=== PATIENT | female | born 1965 | race Caucasian/White ===

== ENCOUNTER → 2021-03-13 09:06 | Outpatient (CLI) | payer BC, SELFPAY ==
--- NOTE | ~2021-03-13 | CT_ITS ---
EXAMINATION: CT abdomen pelvis wo/w con DATE: 03/13/2021 09:58 INDICATION: Right flank pain. History of recent urinary tract infection. Gross hematuria. History of right renal and ureteral surgery 26 years ago TECHNIQUE: Computed tomography (CT) of the abdomen and pelvis was performed without and subsequently with 130 cc Omnipaque 350 intravenous contrast. Automated exposure control and iterative reconstructi on technique were employed. Exam dose: 1015.79 mGy-cm total exam DLP. COMPARISON: None. FINDINGS: There is minimal dependent bilateral lower lobe atelectasis. The lung bases are clear of in filtrate or consolidation. Normal heart size. No pericardial or pleural effusion. There is a 4 mm medial segment left hepatic cyst. No other hepatic space-occupying mass lesion is christine dent. Status post cholecystectomy. No bile duct or pancreatic duct dilatation. No pancreatic mass lesion or calcification. Normal splenic size. Normal morphology of the adrenal glands. No renal mass lesion or scarring is evident. There is bilateral prominence of the extrarenal pelves a s well as moderate prominence of the ureters, especially the proximal right ureter. However, no urina ry tract obstruction is evident The urinary bladder is unremarkable. Uterus and adnexal areas are unremarkable. There is a prominent of fecal material within the colon. No bowel obstruction, bowel wall thickening, pneumatosis or intraperitoneal free air. No suspicious osteolytic or osteoblastic lesions. IMPRESSION: Bilateral renal pelviectasis and moderate prominence of the ureters, without evidence of urinary tract calculus or obstruction 4 mm medial segment left hepatic cyst Status post cholecystectomy Reviewed, dictated and finalized at [facility]. Reviewed, dictated and finalized at location A. IMPRESSION: Bilateral renal pelviectasis and moderate prominence of the ureter s, without evidence of urinary tract calculus or obstruction 4 mm medial segment left hepatic cyst Status post cholecystectomy
[2021-03-13 09:35] LABS: Estimated Glomerular Filt Rate > 60
== END ==
DX: N39.0 Urinary tract infection, site not specified (principal); Z90.49 Acquired absence of other specified parts of digestive tract; K76.89 Other specified diseases of liver
CPT/HCPCS: 74178; Q9967

== ENCOUNTER → 2021-05-11 09:16 | Outpatient (CLI) | payer BC, SELFPAY ==
--- NOTE | ~2021-05-11 | US_ITS ---
US right upper quadrant INDICATION: Hepatic cyst PROCEDURE: Realtime right upper abdominal ultrasound. COMPARISON: No prior studies for comparison. FINDINGS: The pancreas is normal without focal mass or pancreatic ductal dilation. Liver echotexture is normal without focal mass or intrahepatic biliary dilatation. There is a 4 mm liver cyst. There i s normal directional flow in the portal vein. The gallbladder is normal without stones, gallbladder wall thickening or pericholecystic fluid. Comm on bile duct measures 3 mm. No sonographic Fitzpatrick's sign. IMPRESSION: 1: Unremarkable limited abdominal ultrasound. Reviewed, dictated and finalized at location A.
== END ==
PROVIDERS: PCP Internal Medicine
DX: K76.89 Other specified diseases of liver (principal)
CPT/HCPCS: 76705

== ENCOUNTER → 2021-07-13 11:11 | Outpatient (CLI) | payer BC, SELFPAY ==
--- NOTE | ~2021-07-13 | MM_ITS ---
EXAMINATION: MM screening [facility] BI w nevin HISTORY: Screening mammogram TECHNIQUE: Craniocaudal and mediolateral oblique 3-D tomosynthesis images were obtained and synthetic 2-D images were generated. CAD analysis was submitted and interpreted. COMPARISON: 07/09/2018, 06/01/2014 BREAST PARENCHYMAL COMPOSITION: There are scattered areas of fibroglandular density. FINDINGS: There is no evidence of suspicious mass, calcification, or architectural distortion to sugg est malignancy in either breast. There has been no suspicious interval change. IMPRESSION: 1. No mammographic evidence of malignancy. 2. Recommend routine screening mammography in one year. BI-RADS Category 1: Negative Reviewed, dictated and finalized at location A.
== END ==
PROVIDERS: PCP Internal Medicine; Visit Provider Obstetrics & Gynecology
DX: Z12.31 Encounter for screening mammogram for malignant neoplasm of breast (principal)
CPT/HCPCS: 77063; 77067

== ENCOUNTER → 2021-09-04 17:48 | Outpatient (CLI) | payer BC, SELFPAY ==
--- NOTE | ~2021-09-04 | DEXA_ITS ---
Bone Density Report Name: Elizabeth Cutler Age: 55 Sex: Female Ethnicity: White Date of : 1965 Indication: postmenopausal; screening for osteoporosis; parental hip fracture; Referring Provider: CHRISTIANE KABA Study: Bone densitometry was performed. Exam Date: September 04, 2021 Accession number: [id number] Bone Density: Region BMD T-score Z-score Classification AP Spine (L1-L4) 0.894 -1.4 -0.3 Osteopenia Femoral Neck (Left) 0.655 -1.8 -0.7 Osteopenia Total Hip (Left) 0.749 -1.6 -0.9 Osteopenia Femoral Neck (Right) 0.644 -1.8 -0.7 Osteopenia Total Hip (Right) 0.776 -1.4 -0.6 Osteopenia Total Hip Mean 0.763 -1.5 -0.8 Osteopenia World Health Organization criteria for BMD impression classify patients as: Normal (T-score at or above -1.0), Osteopenia (T-score between -1.0 and -2.5), or Osteoporosis (T-score at or below -2.5). 10-year Fracture Risk(1): Major Osteoporotic Fracture 14% Hip Fracture 0.8% Reported Risk Factors: [place] (), Neck BMD=0.644, BMI=21.9, parental fracture (1) FRAX(R) Version 3.08. Fracture probability calculated for an untreated patient. Fracture probability may be lower if the patient has received treatment. Clinical Information Provided by Patient: Parent has had a hip fracture Has used the following medications: Vitamin D, Calcium Patient maximum height was 67.5 Menopause Age: 52 Drinks caffeinated beverages Onset of menses at age 13 Number of children 4 Impression: The patient has low bone mass, based on the Left Femoral Neck T-score. The patient has an estimated ten-year risk of hip fracture of 0.8% and an estimated ten-year risk of major fracture of 14%, based on the WHO FRAX algorithm. The patient has risk factors, including: parental hip fracture. Discussion: BONE DENSITY IS LOW AT ONE OR MORE SKELETAL SITES. This patient's lowest T-score is low at one or more skeletal sites. It meets the World Health Organization's (WHO) criteria for ?low bone mass? (T-score between -1.0 and -2.5). The patient's 10-year risk of fracture as calculated by FRAX is less than the threshold where pharmacological therapy is recommended by the National Osteoporosis Foundation (NOF). However, all treatment decisions require clinical judgment and consideration of individual patient factors, including patient preferences, comorbidities, previous drug use, risk factors not captured in the FRAX model (e.g., frailty, falls, vitamin D deficiency, increased bone turnover, interval significant decline in bone density) and possible under or overestimation of fracture risk by FRAX. The patient should follow a healthful lifestyle (good nutrition with adequate calcium and vitamin D, and appropriate weight-bearing exercise). Follow-Up: Consider repeating this study in 2 to 3 years to reasses
== END ==
PROVIDERS: PCP Internal Medicine; Visit Provider Obstetrics & Gynecology
DX: Z13.820 Encounter for screening for osteoporosis (principal); Z78.0 Asymptomatic menopausal state; M85.88 Other specified disorders of bone density and structure, other site; M85.851 Other specified disorders of bone density and structure, right thigh; M85.852 Other specified disorders of bone density and structure, left thigh
CPT/HCPCS: 77080

== ENCOUNTER → 2022-03-12 11:52 | Outpatient (CLI) | payer BC, SELFPAY ==
--- NOTE | ~2022-03-12 | XR_ITS ---
EXAMINATION: XR ankle LT min 3V EXAM DATE: 03/12/2022 12:25 INDICATION: Left ankle pain. Pt rolled left ankle and went down on it on Saturday03-10-2022. Swelling and bruising laterally and on dorsal side of left foot. TECHNIQUE: Left ankle frontal, lateral and oblique projections obtained and reviewed. There is no pr ior study for comparison. FINDINGS: The left ankle mortise appears intact. There are no acute fractures or dislocations ident ified. There is no subcutaneous gas. There is soft tissue swelling over the ankle anterolaterally. There are no radiopaque foreign bodies. IMPRESSION: 1. Left ankle exam without acute osseous findings. 2. Soft tissue swelling. Reviewed, dictated and finalized at location A.
== END ==
PROVIDERS: PCP Internal Medicine
DX: M25.572 Pain in left ankle and joints of left foot (principal); M79.89 Other specified soft tissue disorders
CPT/HCPCS: 73610

== ENCOUNTER → 2022-09-03 07:05 | Outpatient (CLI) | payer BC, SELFPAY ==
--- NOTE | ~2022-09-03 | MR_ITS ---
EXAMINATION: MR shoulder RT wo con DATE: 09/03/2022 07:43 INDICATION: Right rotator cuff injury with lateral sided right shoulder pain and limited range of mot ion TECHNIQUE: Magnetic resonance imaging (MRI) of the right shoulder was performed without intravenous c ontrast. Sequences included axial PD-weighted FS FSE, coronal oblique PD-weighted FS FSE, coronal obl ique T2-weighted FS FSE, sagittal PD-weighted FS FSE, and sagittal T1-weighted SE. COMPARISON: None. FINDINGS: Coracoacromial arch: The acromion undersurface is flat in morphology (type I). The coracoacromial ligament is normal. Mild acromioclavicular osteoarthritis. Rotator cuff: Mild supraspinatus tendinopathy without discrete tear. The infraspinatus and teres minor tendons are normal. Subscapularis tendon is normal. Normal rotator cuff muscle bulk and signal. Biceps tendon, glenoid labrum and glenohumeral cartilage: Long head of the biceps tendon is normal. Glenoid labrum is normal. Glenohumeral cartilage is normal. Fluid: Physiologic amount of fluid in the glenohumeral joint and biceps tendon sheath. No loose osteochondr al bodies. Small amount of fluid in the subacromial/subdeltoid bursa consistent with mild bursitis. Bones: Normal marrow signal with no edema, fracture or abnormal marrow replacing process. IMPRESSION: 1. Mild supraspinatus tendinopathy without discrete tear. 2. Mild subacromial/subdeltoid bursitis. 2. Mild acromioclavicular osteoarthritis. Reviewed, dictated and finalized at location B.
== END ==
PROVIDERS: PCP Internal Medicine; Visit Provider Internal Medicine
DX: M19.011 Primary osteoarthritis, right shoulder (principal); M75.51 Bursitis of right shoulder
CPT/HCPCS: 73221

== ENCOUNTER → 2022-10-01 07:29 | Outpatient (CLI) | payer BC, SELFPAY ==
--- NOTE | ~2022-10-01 | XR_ITS ---
EXAMINATION: XR knee RT 3V DATE: 10/01/2022 07:42 INDICATION: Right knee pain TECHNIQUE: Three views of the right knee were obtained. COMPARISON: None. FINDINGS: Alignment is normal. No fracture or osteochondral lesion. There is mild tricompartmental os teoarthritis characterized by tiny marginal osteophytes. No joint effusion/synovitis. Soft tissues a re unremarkable. IMPRESSION: 1. No acute osseous abnormality. Reviewed, dictated and finalized at location B. NT PARTNER
--- NOTE | ~2022-10-01 | XR_ITS ---
EXAMINATION: XR foot LT 2V INDICATION: Left foot pain TECHNIQUE: Two views of the left foot are obtained. COMPARISON: 03/09/2007 FINDINGS: There is moderate osteoarthritis of multiple interphalangeal joints. Mild osteoarthritis is noted at the first metatarsophalangeal joint. Mild osteoarthritis is also noted in the midfoot. Ther e is a posterior calcaneal enthesophyte. IMPRESSION: 1. Polyarticular osteoarthritis without acute osseous abnormality. Reviewed, dictated and finalized at location B. MILL SUPERVISOR
== END ==
PROVIDERS: PCP Internal Medicine; Visit Provider Internal Medicine
DX: M25.50 Pain in unspecified joint (principal); M19.072 Primary osteoarthritis, left ankle and foot
CPT/HCPCS: 73562; 73620

== ENCOUNTER → 2023-02-13 15:10 | Outpatient (CLI) | payer BC, SELFPAY ==
--- NOTE | ~2023-02-13 | CT_ITS ---
EXAMINATION: CT abdomen pelvis w con DATE: 02/13/2023 15:36 INDICATION: Right lower quadrant abdominal pain TECHNIQUE: Computed tomography (CT) of the abdomen and pelvis was performed with 100 mL Omnipaque-350 intravenous contrast. Automated exposure control and iterative reconstruction technique were employe d. The dose-length product was 536.44 mGy-cm. COMPARISON: 03/13/2021 FINDINGS: Minimal dependent atelectasis in the bilateral lower lobes. Heart size is normal. No pericardial or p leural effusion. Cholecystectomy clips in the gallbladder fossa. Unchanged subcentimeter low-attenuat ion cyst in the left hepatic lobe. Spleen, pancreas, bilateral adrenal glands and kidneys are normal. Surgical clips along the anterior margin of the right psoas muscle. There is eccentric enhancing sof t tissue along one side of cord appears be a blind-ending small tubular fluid-filled structure which extends towards the cecum with additional enhancing soft tissue at what appears to the ileocecal valv e. Findings are concerning for malignancy along the appendix and appendiceal mucocele. There is no polanco rrounding inflammatory stranding to suggest acute appendicitis. The anteverted, retroflexed uterus an d bilateral adnexa are unremarkable. Bladder is normal. No free intraperitoneal gas or fluid. No path ologically enlarged abdominal or pelvic lymphadenopathy. Minimal to mild scattered degenerative skele javier changes in the pelvis and spine. IMPRESSION: 1. Asymmetric thickened peripheral enhancing soft tissue along the small blind-ending fluid-filled tu bular structure which extends to the tip the cecum most likely the appendix. There is no surrounding from trace stranding to suggest acute appendicitis of the wall thickening raises concern for malignan cy. Less likely differential for the structure would include a loop of small bowel or hydrosalpinx. Reviewed, dictated and finalized at location A. IMPRESSION: 1. Asymmetric thickened peripheral enhancing soft tissue along the small blind- ending fluid-filled tubular structure which extends to the tip the cecum most l ikely the appendix. There is no surrounding from trace stranding to suggest acu te appendicitis of the wall thickening raises concern for malignancy. Less like ly differential for the structure would include a loop of small bowel or hydros alpinx.
== END ==
PROVIDERS: PCP Internal Medicine; Visit Provider Internal Medicine
DX: R10.31 Right lower quadrant pain (principal)
CPT/HCPCS: 74177; Q9967

== ENCOUNTER 2023-02-22 12:15 | Outpatient (CLI) | payer BC, SELFPAY ==
--- NOTE | 2023-02-22 14:47 | ECG_ITS ---
Measurements Intervals [place] Rate: 74 P: 62 CA: 176 QRS: 64 QRSD: 89 T: 68 QT: 376 QTc: 419 Interpretive Statements SINUS RHYTHM BASELINE ARTIFACT- I, II, III, AVR, AVL, AVF NORMAL ECG NO PREVIOUS ECG AVAILABLE FOR COMPARISON Electronically Signed On 02-22-2023 15:22:12 CDT by David Gresham D.O.
[2023-02-22 15:18] LABS: Hematocrit 36.8 % (37.0-47.0)
[2023-02-22 16:06] LABS: Carcinoembryonic Antigen 0.6 ng/mL (0.0-3.0)
== END 2023-02-22 12:16 | disposition home or self-care (01) ==
PROVIDERS: Anesthesiology; PCP Internal Medicine; Visit Provider Surgery
DX: K63.89 Other specified diseases of intestine (principal); Z01.818 Encounter for other preprocedural examination
CPT/HCPCS: 36415; 82378; 85014; 85018; 86850; 86900; 86901; 93005

== ENCOUNTER 2023-02-25 12:01 | Inpatient (IN) | payer BC, SELFPAY ==
[2023-02-22 14:08] VITALS: BP 102/69; PULSE 82; RESP 16; TEMP 37.3; O2SAT 98; BMI 23.7
--- NOTE | 2023-02-22 14:22 | PC.NURSE ---
Report to the Outpatient Waiting Room, entrance under the green pavilion located off [facility], at time __6:00AM on date __02/25/23 . Planned Procedure Time: __7:30AM . Time changes happen often and if your time is changed the preop area will call you the afternoon before. - You and your visitor will be asked to self-screen and do not enter if you have any COVID symptoms. - Only one visitor is requested with a max of two and NO children visitors are allowed at this time. - The patient visitor may be requested to leave or wait in car when not with patient due to distancing restrictions. - A mask is optional within the hospital at this time. Patients may have clear liquids (water, carbonated beverages, clear teas, apple juice) until 3 hours prior to surgery with a maximum of 20 ounces. BOWEL PREP PER DR MARQUEZ ANTIOBIOTICS DAY BEFORE SURGERY ORDERED HIBICLENS SHOWER DAY BEFORE SURGERY AND MORNING OF SURGERY Take the following medications with a SIP of water the morning of surgery: ____PAROXETINE DO NOT STOP ANY OF YOUR OTHER PRESCRIPTION MEDICATIONS PRIOR TO SURGERY ?EXCEPT THE FOLLOWING Medications to discontinue per physician ____NONE Date to take last dose Please no make-up, nail [place] citizen, hairspray, perfume, deodorant, or body powder the day of surgery. No jewelry (including any body piercings) or valuables the day of surgery, leave them at home. Please take a shower or bath the night before, or the morning of, surgery with an antibacterial soap. Wear comfortable, loose fitting clothing. Children are encouraged to wear pajamas. - Jewelry must be removed prior to entering the operating room. Rings and piercings that are not removed may be cut off. - The hospital will not accept responsibility for valuables. - Please leave all valuables, including medications, at home the day of surgery. If you are going home after surgery, a licensed hole digger truck driver must drive you home. - NO public transportation without another adult if you receive anesthesia. - We recommend that an adult stay with you for 24 hours following discharge. - We also recommend that you do not drive, make important decision, drink alcoholic beverages, or take any drugs that were not prescribed by your health care provider for at least 24 hours after your discharge time. Follow any additional instructions given to you from your surgeon. If you or anyone in your household have experienced Covid symptoms in the past week, please notify your surgeon or the nurse liaison at the phone number below for possible testing. Telephone instructions given to __PATIENT and asked if any additional questions and then verbalized understanding. Patient advised to call surgeon office or pre surgery nurse liaison [phone] if any additional questions.
[2023-02-25] VITALS (12 sets, daily range): BP systolic 104–126; BP diastolic 55–82; PULSE 74–90; RESP 10–21; TEMP 36.3–37.1; O2SAT 96–100
[2023-02-25] MEDS: SCOPOLAMINE 1.5 MG PATCH TRANSDERM (06:30)
[2023-02-25] MEDS: LACTATED RINGERS 1,000 ML 30 ML IV CONT ×2 (06:30→11:06)
[2023-02-25] MEDS: ACETAMINOPHEN 500 MG TABLET 1000 MG PO ×4 (06:40→23:06)
[2023-02-25] MEDS: KETOROLAC 15 MG/ML VIAL (*BKC) IV PUSH (06:41)
--- NOTE | 2023-02-25 07:03 | WPDHPUPDATE1 ---
History and Physical Update Update Date/Time: 02/25/23 07:03 History and Physical has been reviewed, including an updated exam of the patient. There are NO changes in the patient's condition. Risks, benefits, and alternatives have been discussed and questions answered. Patient agrees to proceed with procedure.
--- NOTE | 2023-02-25 07:11 | WPDANESEPPF ---
Anes - Initial Pre Proc Eval Procedure: Operation Date: 02/25/23 07:30 Proposed Procedures p Laparoscopic Assisted Right Hemicolectomy, Da Brooklynn Assisted - Oliver Hernandez DO Date/Time: 02/25/23 07:11 Surgeon: Oliver Hernandez DO Pre Op Diagnosis: cecal mass Patient Data Age: 57 Gender: F Height: 1.7 m Weight: 68.7 kg Last Vital Signs Temp 99.2 F 02/22/23 14:08 Pulse 82 02/22/23 14:08 Resp 16 02/22/23 14:08 BP 102/69 02/22/23 14:08 Pulse Ox 98 02/22/23 14:08 O2 Del Method Room Air 02/22/23 14:08 Allergies Allergy/AdvReac Type Severity Reaction Status Date / Time No Known Allergies Allergy Verified 02/25/23 07:05 Home Medications Medication Instructions Recorded Confirmed Type paroxetine HCl 10 mg tablet 10 mg PO QAM 09/20/22 02/25/23 History ciprofloxacin HCl 500 mg tablet 500 mg PO ONCE #1 tablet 02/21/23 02/25/23 Rx metronidazole 500 mg tablet See Rx Instructions .Route 02/21/23 02/25/23 Rx .COMPLEX #3 tabs fexofenadine 180 mg tablet 180 mg PO DAILY 02/22/23 02/25/23 History (Allergy Relief (fexofenadine)) Patient hx anesthesia problems: post op nausea/vomiting Family hx anesthesia problems: none Results Review: All pre-operative results and documents have been reviewed as part of the pre-operative evaluation. PMFSH Past Medical History Medical History Anxiety History of vaginal delivery x 3 Surgical History Surgical History History of delivery ax 1 History of cholecystectomy History of kidney surgery History of tonsillectomy and adenoidectomy Hx of laparoscopy [place] teeth removed Family History Family History Father Carcinoma of colon Skin cancer Mother Cerebrovascular accident Other Family history of arthritis Social History Social History Smoking status: Never smoker Second hand tobacco smoke exposure: No Alcohol intake: current Drinks per week: 2 Substance use: never Living arrangements: with family Additional living arrangements comments: [facility] Occupation/Education: occupation Additional occupation/education comments: Speech Pathologist Spiritual care concerns: No Anes - Eval Final PreProcedure Day of Procedure 02/25/23 07:11 Patient weight: normal Heart: regular rate and rhythm Lungs: clear to auscultation Airway: Mallampati scale class II Neurological: alert and oriented Last oral intake: >/= 8 hours ASA classification: III Emergent: no Anesthetic plan: proceed Anesthesia type and monitoring: general GIVS and standard monitoring Results Review: All pre-operative results and documents have been reviewed as part of the pre-operative evaluation. Informed Consent: The patient's anesthetic plan and its attendant risks and benefits were discussed with the patient/family/POA. Questions were solicited and answers provided to the satisfaction of the patient/family/POA.
[2023-02-25] MEDS: ceFAZolin 2 GM/D5W 50 ML 2 GM/50 ML BAG IVPB (07:29)
[2023-02-25] MEDS: metroNIDAZOLE 500 MG/ISO 100ML 500 MG/100 ML BAG 100 MG IVPB (07:45)
[2023-02-25] MEDS: INDOCYANINE GREEN 25 MG VIAL WITH DILUENT 7.5 MG IV PUSH (09:46)
--- NOTE | 2023-02-25 11:08 | W.PM.PROC2 ---
Procedure Note - Detailed Date of Procedure 02/25/23 Pre-op Diagnosis cecal mass Post-op Diagnosis Other (appendiceal mass) Procedure Performed Laparoscopic right hemicolectomy with ileocolic anastomosis, da Brooklynn assisted Surgeon Oliver Hernandez, DO Anesthesia General and Local (Exparel) Indications This is a 57-year-old woman who presented with right lower quadrant pain that started about 4 months ago. She underwent CT of her abdomen and pelvis on 02/13/2023 which showed evidence of a mass at the cecum or appendix. She then underwent colonoscopy on 02/18/[address] Carrero and this showed evidence of a polypoid mass near the appendiceal orifice. Biopsies showed evidence of mucinous adenocarcinoma. Her preoperative CEA level was 0.6 and there was no other sign of metastatic spread on the CT. Discussions were made with the patient about treatment options and decision was made to proceed with robotic assisted laparoscopic right hemicolectomy. Findings Robotic assisted laparoscopic right hemicolectomy was performed. The mass was identified at the appendix and cecum. It appeared likely to be arising from the appendix and extending to the cecum. There also appeared to be multiple small white peritoneal implants along the mesentery of the small bowel. The mesoappendix also appeared to be somewhat tethered to the right salpinx. There did not appear to be any gross invasion into the ovary or uterus. There were a few small white areas on the peritoneum in the pelvis near the uterus. One of these was excised and sent for frozen section which was inconclusive for any sign of metastases. No other sign of metastatic spread was identified. I did choose to extend the excision along the terminal ileum to allow for excision of the small implants on the mesentery of the terminal ileum. ICG was used to confirm adequate perfusion to the proximal and distal margins. An isoperistaltic [id number]-[id number] anastomosis was performed using a 60 mm stapler. The common enterotomy was then closed with a double layer of 3-0 V lock running absorbable suture. Description of Procedure Procedure as well as risks, benefits, and alternatives were discussed with the patient.? Written consent was obtained and placed in chart prior to procedure.? Patient was brought back to surgical suite.? She was placed supine on operating table.? Time-out was done to confirm patient and procedure.? She was then intubated by the anesthesia department.? Her abdomen was prepped and draped in sterile fashion using chlorhexidine prep.? An 8 mm incision was made in the left upper quadrant and a 5 mm Optiview trocar was advanced through the abdominal layers under direct visualization.? Once inside the abdominal cavity, carbon dioxide insufflation was used to create a pneumoperitoneum.? Camera was inserted in the abdomen was inspected.? The patient was placed in 5 degree Trendelenburg and 10? rotated left an 8 mm incision was made in the suprapubic region in midline and an 8 mm trocar was inserted under direct visualization another 8 mm incision was made in the umbilical region just inferior into the left of the umbilicus and an 8 mm trocar was inserted under direct visualization.? A 12 mm incision was made in the left lateral abdomen and a 12 mm trocar was inserted under direct visualization.? An 8 mm incision was made in the left lower quadrant and an 8 mm assist port was placed under direct visualization.? The 5 mm port was then removed and exchanged for an 8 mm port.? The robotic arms were then brought up to the patient's bedside and secured to the ports.? The camera and instruments were then inserted.? I then moved over to the robotic console and took control of the camera and instruments.? Thorough inspection was made around the abdominal cavity.? The omentum was then reflected cephalad over the transverse colon.? The area near the ileocecal valve was grasped and retracted anterior and laterally to tent up the ileocol
--- NOTE | 2023-02-25 12:14 | ADMGEN ---
This patient, Elizabeth Cutler, was admitted to 2 Medical Room 260-01. Patient/family oriented to hospital policies and general routines including ID bracelet, bed and alarms, visiting hours, pain management, procedures, bathroom and other care routines, personal items, smoking policy, room service/diet, and visiting hours. Information on how to activate the Rapid Response Team has been discussed. Patient/Family are encouraged to report perceived risks to care and to ask questions if they do not understand what they are told or what they should do.
[2023-02-25] MEDS: LACTATED RINGERS 1,000 ML 100 ML IV CONT ×2 (12:34→23:06)
[2023-02-25] MEDS: oxyCODONE HCL (*CRX) 2.5 MG TAB IR PO ×3 (12:34→23:07)
[2023-02-25] MEDS: ONDANSETRON INJ 4 MG/2 ML VIAL IV PUSH ×2 (12:39→19:08)
[2023-02-25] MEDS: ceFAZolin 1 GM/NS 50 ML 1 GM/50 ML BAG IVPB ×2 (15:23→23:06)
[2023-02-26 01:16] VITALS: BP 108/66; PULSE 83; RESP 20; TEMP 36.9; O2SAT 98
[2023-02-26] MEDS: ONDANSETRON INJ 4 MG/2 ML VIAL IV PUSH ×2 (02:05→16:54)
[2023-02-26] MEDS: MORPHINE SULFATE (*CRX) 4 MG/ML INJ IV PUSH (02:05)
[2023-02-26 05:37] VITALS: BP 100/61; PULSE 82; RESP 18; TEMP 37.1; O2SAT 97
[2023-02-26 05:49] LABS: Basophils Percent Auto 0.6 % (0.2-1.2); Eosinophils Percent Auto 0.1 % (0-4.4); Hematocrit 29.6 % (37.0-47.0); Hemoglobin 9.6 g/dL (12.0-15.0); Immature Granulocyte Absolute 0.02 K/mm3 (0.00-0.031); Immature Granulocyte Percent A 0.3 % (0-0.5); Lymphocytes Absolute Auto 1.07 K/mm3 (0.9-3.2); Lymphocytes Percent Auto 15.1 % (18.3-44.2); Mean Corpuscular HGB Conc 32.4 g/dl (32-36); Mean Corpuscular Hemoglobin 32.1 pg (26-34); Mean Platelet Volume 8.6 fl (7.4-10.4); Monocytes Absolute Auto 0.5 K/mm3 (0.1-0.6); Monocytes Percent Auto 6.9 % (2.6-8.5); Neutrophils Absolute Auto 5.5 K/mm3 (1.3-6.7); Platelet Count Result 220 k/mm3 (150-375); Red Blood Count 2.99 M/mm3 (4.2-5.4); Red Cell Distribution Width 13.2 % (11.5-14.5); White Blood Count 7.1 K/mm3 (4.5-10.0)
[2023-02-26 06:01] LABS: Anion Gap 3 mmol/L (8-16); Blood Urea Nitrogen 6 mg/dL (7-17); Calcium 8.4 mg/dL (8.4-10.2); Carbon Dioxide 34 mmol/L (22-30); Chloride 102 mmol/L (98-107); Estimated CRCL calculation 85 ml/min; Estimated Glomerular Filt Rate > 60; Glucose 112 mg/dL (65-110); Potassium 4.5 mmol/L (3.4-5.0); Sodium 139 mmol/L (137-145)
[2023-02-26] MEDS: ACETAMINOPHEN 500 MG TABLET 1000 MG PO ×4 (06:26→23:30)
[2023-02-26] MEDS: oxyCODONE HCL (*CRX) 2.5 MG TAB IR PO ×2 (09:04→16:54)
[2023-02-26] MEDS: LACTATED RINGERS 1,000 ML 100 ML IV CONT (09:05)
[2023-02-26] MEDS: ENOXAPARIN 40 MG/0.4 ML SYRINGE SUB-Q (09:06)
[2023-02-26] MEDS: PARoxetine 10 MG TABLET PO (09:06)
[2023-02-26 10:00] VITALS: BP 104/59; PULSE 91; RESP 16; TEMP 36.4; O2SAT 100
--- NOTE | 2023-02-26 10:52 | WPDANESPN ---
Anes - Prog Note Post-Op Date/Time: 02/26/23 10:52 Vital Signs: Last Vital Signs Temp 36.4 C 02/26/23 10:00 Pulse 91 02/26/23 10:00 Resp 16 02/26/23 10:00 BP 104/59 L 02/26/23 10:00 Pulse Ox 100 02/26/23 10:00 O2 Del Method Room Air 02/26/23 08:00 O2 Flow Rate 7 02/25/23 11:23 Pain Score (VAS): 3 I/O: Intake & Output 02/25/23 02/26/23 02/26/23 23:59 07:59 15:59 Intake Total 1530 1240 Output Total 640 1100 Balance 890 -1100 1240 Laboratory Tests 02/26/23 05:33 02/26/23 05:33 02/26/23 02/26/23 05:33 05:33 WBC 7.1 RBC 2.99 L Hgb 9.6 L Hct 29.6 L MCV 99.0 MCH 32.1 MCHC 32.4 RDW 13.2 Plt Count 220 MPV 8.6 Immature Gran % (Auto) 0.3 Neut % (Auto) 77.0 H Lymph % (Auto) 15.1 L [place] % (Auto) 6.9 Eos % (Auto) 0.1 Baso % (Auto) 0.6 Lymph # (Auto) 1.07 [place] # (Auto) 0.5 Eos # (Auto) 0.0 Baso # (Auto) 0.0 Abs Immat Gran (auto) 0.02 Absolute Neuts (auto) 5.5 Absolute Nucleated RBC 0.0 Nucleated RBC % 0.0 Sodium 139 Potassium 4.5 Chloride 102 Carbon Dioxide 34 H Anion Gap 3 L BUN 6 L Creatinine 0.60 L Estim Creat Clear Calc 85 Estimated GFR > 60 Glucose 112 H Calcium 8.4 Patient Feedback: Patient satisfied with anesthetic care.
--- NOTE | 2023-02-26 11:42 | PM.PNGS ---
Progress Note: A&P Assessment and Plan (1) Cecum mass: Code(s): K63.89 - Other specified diseases of intestine Status: Acute Assessment and Plan: Increase activity, advance diet as tolerated Will stop IV fluids today Voiding trial tomorrow Final pathology pending (2) Postoperative urinary retention: Code(s): N99.89 - Other postprocedural complications and disorders of genitourinary system; R33.8 - Other retention of urine Status: Acute Subjective Subjective Date/Time Seen: 02/26/23 11:42 Interval history: bowels moving. pain controlled. had urinary retention postop and Stevens placed this AM. Exam GI: Inspection: normal to inspection, non-distended and incision (intact with glue) GI Palp: Yes Soft to palpation and Yes Tenderness to palpation present (GI) (incisional) Auscultation: normal bowel sounds Objective Data Vital Signs Vital Signs: Vital Signs - 24 hr 02/25/23 11:50 02/25/23 12:00 02/25/23 12:01 Temperature 36.4 C 36.4 C L Pulse Rate 85 78 74 Respiratory Rate 14 14 16 Blood Pressure 113/69 113/71 118/61 Pulse Oximetry 100 99 97 Oxygen Delivery Room Air Room Air 02/25/23 12:16 02/25/23 12:46 02/25/23 13:46 Temperature 36.4 C L 36.4 C L 37.1 C Pulse Rate 76 88 89 Respiratory Rate 14 16 16 Blood Pressure 126/69 109/60 117/68 Pulse Oximetry 99 96 97 Oxygen Delivery 02/25/23 19:22 02/25/23 21:46 02/26/23 01:16 Temperature 36.3 C L 36.6 C 36.9 C Pulse Rate 87 78 83 Respiratory Rate 16 21 H 20 Blood Pressure 109/55 L 104/62 108/66 Pulse Oximetry 97 100 98 Oxygen Delivery 02/26/23 05:37 02/26/23 08:00 02/26/23 10:00 Temperature 37.1 C 36.4 C Pulse Rate 82 91 Respiratory Rate 18 16 Blood Pressure 100/61 104/59 L Pulse Oximetry 97 100 Oxygen Delivery Room Air Intake/Output Intake/Output: Intake & Output 02/23/23 02/24/23 02/25/23 02/26/23 23:59 23:59 23:59 23:59 Intake Total 1980 1240 Output Total 1340 1100 Balance 640 140 Meds/Results Medications: Active Medications Generic Name Dose Route Start Last Admin Trade Name Freq PRN Reason Stop Dose Admin Acetaminophen 1,000 mg 02/25/23 12:00 02/26/23 06:26 Acetaminophen 500 Mg Tablet PO 1,000 mg Q6HR HERIBERTO Administration Enoxaparin Sodium 40 mg 02/26/23 09:00 02/26/23 09:06 Enoxaparin 40 Mg/0.4 Ml Syringe SUB-Q 40 mg DAILY HERIBERTO Administration Morphine Sulfate 2 mg 02/25/23 12:01 Morphine Sulfate (*Crx) 2 Mg/Ml Inj IV PUSH Q2H PRN Pain Rated 4-6 Morphine Sulfate 4 mg 02/25/23 12:01 02/26/23 02:05 Morphine Sulfate (*Crx) 4 Mg/Ml Inj IV PUSH 4 mg Q2H PRN Administration Pain Rated 7-10 Ondansetron HCl 4 mg 02/25/23 12:01 02/26/23 02:05 Ondansetron Inj 4 Mg/2 Ml Vial IV PUSH 4 mg Q4H PRN Administration Nausea And Vomiting Oxycodone HCl 2.5 mg 02/25/23 12:01 02/26/23 09:04 Oxycodone Hcl (*Crx) 2.5 Mg Tab Ir PO 2.5 mg Q4H PRN Administration Pain Rated 4-6 Oxycodone HCl 5 mg 02/25/23 12:01 Oxycodone Hcl (*Crx) 5 Mg Tab Ir PO Q4H PRN Pain Rated 7-10 Paroxetine HCl 10 mg 02/26/23 09:00 02/26/23 09:06 Paroxetine 10 Mg Tablet PO 10 mg QAM HERIBERTO Administration Labs Labs: Laboratory Results - last 24 hr 02/26/23 02/26/23 05:33 05:33 WBC 7.1 RBC 2.99 L Hgb 9.6 L Hct 29.6 L MCV 99.0 MCH 32.1 MCHC 32.4 RDW 13.2 Plt Count 220 MPV 8.6 Immature Gran % (Auto) 0.3 Neut % (Auto) 77.0 H Lymph % (Auto) 15.1 L [place] % (Auto) 6.9 Eos % (Auto) 0.1 Baso % (Auto) 0.6 Lymph # (Auto) 1.07 [place] # (Auto) 0.5 Eos # (Auto) 0.0 Baso # (Auto) 0.0 Abs Immat Gran (auto) 0.02 Absolute Neuts (auto) 5.5 Absolute Nucleated RBC 0.0 Nucleated RBC % 0.0 Sodium 139 Potassium 4.5 Chloride 102 Carbon Dioxide 34 H Anion Gap 3 L BUN 6 L Creatinine 0.60 L Estim Creat Clear Calc 85 Estimated GFR > 60 Gluc
[2023-02-26 14:25] VITALS: BP 113/65; PULSE 81; RESP 18; TEMP 36.9; O2SAT 98
[2023-02-26 18:00] VITALS: BP 116/77; PULSE 81; RESP 18; TEMP 36.7; O2SAT 98
[2023-02-26 22:20] VITALS: BP 123/78; PULSE 79; RESP 20; TEMP 36.8; O2SAT 99
[2023-02-27 02:30] VITALS: BP 124/77; PULSE 80; RESP 20; TEMP 37.1; O2SAT 98
[2023-02-27] MEDS: oxyCODONE HCL (*CRX) 2.5 MG TAB IR PO (04:25)
[2023-02-27] MEDS: ONDANSETRON INJ 4 MG/2 ML VIAL IV PUSH (04:25)
[2023-02-27] MEDS: ACETAMINOPHEN 500 MG TABLET 1000 MG PO ×4 (05:45→23:31)
[2023-02-27 06:00] VITALS: BP 128/75; PULSE 86; RESP 18; TEMP 37.1; O2SAT 96
[2023-02-27 06:06] LABS: Hematocrit 28.3 % (37.0-47.0); Hemoglobin 9.1 g/dL (12.0-15.0); Mean Corpuscular HGB Conc 32.2 g/dl (32-36); Mean Corpuscular Hemoglobin 32.6 pg (26-34); Mean Corpuscular Volume 101.4 fl (80-100); Mean Platelet Volume 8.9 fl (7.4-10.4); Platelet Count Result 217 k/mm3 (150-375); Red Blood Count 2.79 M/mm3 (4.2-5.4); Red Cell Distribution Width 13.4 % (11.5-14.5); White Blood Count 5.2 K/mm3 (4.5-10.0)
[2023-02-27 06:24] LABS: Anion Gap -1 mmol/L (8-16); Blood Urea Nitrogen 5 mg/dL (7-17); Calcium 8.1 mg/dL (8.4-10.2); Carbon Dioxide 35 mmol/L (22-30); Chloride 103 mmol/L (98-107); Estimated CRCL calculation 85 ml/min; Estimated Glomerular Filt Rate > 60; Glucose 96 mg/dL (65-110); Potassium 3.7 mmol/L (3.4-5.0); Sodium 137 mmol/L (137-145)
[2023-02-27] MEDS: PARoxetine 10 MG TABLET PO (08:04)
[2023-02-27] MEDS: ENOXAPARIN 40 MG/0.4 ML SYRINGE SUB-Q (08:04)
[2023-02-27 10:40] VITALS: BP 110/69; PULSE 79; RESP 16; TEMP 36.6; O2SAT 99
--- NOTE | 2023-02-27 10:47 | PM.PNGS ---
Progress Note: A&P Assessment and Plan (1) Cecum mass: Code(s): K63.89 - Other specified diseases of intestine Status: Acute Assessment and Plan: Advance to low fiber diet. Still having some nausea following liquids but this improved with smaller meals. No vomiting. Bowels are moving. Urinary catheter removed today Continue to increase activity and ambulate a few times today Final pathology pending (2) Postoperative urinary retention: Code(s): N99.89 - Other postprocedural complications and disorders of genitourinary system; R33.8 - Other retention of urine Status: Acute Assessment and Plan: Voiding trial today Plan I have discussed the patient's case and plan of care with Dr. Hernandez. Subjective Subjective Date/Time Seen: 02/27/23 10:47 Post Op day: 2 (Laparoscopic R hemicolectomy, Da Brooklynn assisted) Patient reports: flatus, bowel movement, nausea and afebrile Interval history: Patient reports having some nausea after meals. She felt like she was taking in too many liquids and would feel nauseous to follow. This has improved with Zofran. She tried taking in less liquids this morning for breakfast and had less nausea. Pain is well controlled with the Tylenol and Oxycodone. She is tolerating activity and walking in the room. Her urinary catheter was recently removed this morning and she has not yet voided. She is passing lots of flatus today and had 4 BMs since yesterday. Review of Systems Review of Systems: All systems reviewed & are unremarkable except as noted in HPI and below Exam Const: General: comfortable, no acute distress and awake Orientation/consciousness: patient oriented x3 GI: Inspection: non-distended and incision (incisions dry and intact) GI Palp: Yes Soft to palpation and Yes Tenderness to palpation present (GI) (incisional) Auscultation: normal bowel sounds Neuro: General: moves all extremities and no focal motor deficits Extrem: General: no calf tenderness and no edema Psych: Mental Status: mental status grossly normal Insight: Good insight present (Psych) Objective Data Vital Signs Vital Signs: Vital Signs - 24 hr 02/26/23 14:25 02/26/23 18:00 02/26/23 20:00 Temperature 98.4 F 98.0 F Pulse Rate 81 81 Respiratory Rate 18 18 Blood Pressure 113/65 116/77 Pulse Oximetry 98 98 Oxygen Delivery Room Air 02/26/23 22:20 02/27/23 02:30 02/27/23 06:00 Temperature 98.2 F 98.7 F 98.8 F Pulse Rate 79 80 86 Respiratory Rate 20 20 18 Blood Pressure 123/78 124/77 128/75 Pulse Oximetry 99 98 96 Oxygen Delivery Intake/Output Intake/Output: Intake & Output 02/24/23 02/25/23 02/26/23 02/27/23 23:59 23:59 23:59 23:59 Intake Total 1980 2330 800 Output Total 1340 3725 3500 Balance 538 -0182 -5820 Meds/Results Medications: Active Medications Generic Name Dose Route Start Last Admin Trade Name Freq PRN Reason Stop Dose Admin Acetaminophen 1,000 mg 02/25/23 12:00 02/27/23 05:45 Acetaminophen 500 Mg Tablet PO 1,000 mg Q6HR HERIBERTO Administration Enoxaparin Sodium 40 mg 02/26/23 09:00 02/27/23 08:04 Enoxaparin 40 Mg/0.4 Ml Syringe SUB-Q 40 mg DAILY HERIBERTO Administration Morphine Sulfate 2 mg 02/25/23 12:01 Morphine Sulfate (*Crx) 2 Mg/Ml Inj IV PUSH Q2H PRN Pain Rated 4-6 Morphine Sulfate 4 mg 02/25/23 12:01 02/26/23 02:05 Morphine Sulfate (*Crx) 4 Mg/Ml Inj IV PUSH 4 mg Q2H PRN Administration Pain Rated 7-10 Ondansetron HCl 4 mg 02/25/23 12:01 02/27/23 04:25 Ondansetron Inj 4 Mg/2 Ml Vial IV PUSH 4 mg Q4H PRN Administration Nausea And Vomiting Oxycodone HCl 2.5 mg 02/25/23 12:01 02/27/23 04:25 Oxycodone Hcl (*Crx) 2.5 Mg Tab Ir PO 2.5 mg Q4H PRN Administration Pain Rated 4-6 Oxycodone HCl 5 mg 02/25/23 12:01 Oxycodone Hcl (*Crx) 5 Mg Tab Ir PO Q4H PRN Pain Rated 7-10 Paroxetine HCl 10 mg 02/26/23 09:00 02/27/23 08:04
[2023-02-27 14:27] VITALS: BP 108/71; PULSE 77; RESP 16; TEMP 36.8; O2SAT 96
[2023-02-27 18:00] VITALS: BP 112/67; PULSE 69; RESP 16; TEMP 36.1; O2SAT 96
[2023-02-27 20:57] VITALS: BP 114/72; PULSE 74; RESP 18; TEMP 37.1; O2SAT 99
[2023-02-28 05:31] LABS: Hematocrit 29.7 % (37.0-47.0); Hemoglobin 9.2 g/dL (12.0-15.0); Mean Corpuscular Hemoglobin 30.9 pg (26-34); Mean Corpuscular Volume 99.7 fl (80-100); Mean Platelet Volume 8.6 fl (7.4-10.4); Platelet Count Result 226 k/mm3 (150-375); Red Blood Count 2.98 M/mm3 (4.2-5.4); Red Cell Distribution Width 12.8 % (11.5-14.5); White Blood Count 5.1 K/mm3 (4.5-10.0)
[2023-02-28 05:45] LABS: Anion Gap 1 mmol/L (8-16); Blood Urea Nitrogen 5 mg/dL (7-17); Calcium 8.4 mg/dL (8.4-10.2); Carbon Dioxide 34 mmol/L (22-30); Chloride 103 mmol/L (98-107); Estimated CRCL calculation 101 ml/min; Estimated Glomerular Filt Rate > 60; Glucose 91 mg/dL (65-110); Potassium 3.9 mmol/L (3.4-5.0); Sodium 138 mmol/L (137-145)
[2023-02-28 05:46] VITALS: BP 111/70; PULSE 69; RESP 17; TEMP 36.4; O2SAT 96
[2023-02-28] MEDS: ACETAMINOPHEN 500 MG TABLET 1000 MG PO (06:04)
[2023-02-28] MEDS: PARoxetine 10 MG TABLET PO (08:47)
[2023-02-28] MEDS: ENOXAPARIN 40 MG/0.4 ML SYRINGE SUB-Q (08:47)
--- NOTE | 2023-02-28 08:49 | PM.DS ---
DS: Admitting Diagnosis Discharge Date 02/28/23 Admitting Diagnosis Cecum mass DS: Discharge Diagnosis Discharge Diagnosis (1) Mass of appendix: Code(s): K38.8 - Other specified diseases of appendix Status: Acute Assessment and Plan: 02/25/23 - Laparoscopic right hemicolectomy with ileocolic anastomosis, da Brooklynn assisted - by Dr. Hernandez (2) Postoperative urinary retention: Code(s): N99.89 - Other postprocedural complications and disorders of genitourinary system; R33.8 - Other retention of urine Status: Acute DS: Summary Hospital Course Reason for hospitalization: This is a 57-year-old woman who presented with right lower quadrant pain that started about 4 months ago.? She underwent CT of her abdomen and pelvis on 02/13/2023 which showed evidence of a mass at the cecum or appendix.? She then underwent colonoscopy on 02/18/[address] Carrero and this showed evidence of a polypoid mass near the appendiceal orifice.? Biopsies showed evidence of mucinous adenocarcinoma.? Her preoperative CEA level was 0.6 and there was no other sign of metastatic spread on the CT.? Discussions were made with the patient about treatment options and decision was made to proceed with robotic assisted laparoscopic right hemicolectomy. Hospital Course: She underwent laparoscopic right hemicolectomy with ileocolic anastomosis, da Brooklynn assisted, by Dr. Hernandez on 02/25/23. The mass identified at surgery appeared to likely be arising from the appendix (See operative note). She was admitted post-operatively to the medical floor. She was slowly advanced over the next two days to a low fiber diet. Post-operatively she did have urinary retention that was treated with straight catheterization and ultimately had an indwelling urinary catheter placed. Catheter removed post-op day 2 for voiding trail. She has been voiding without any issues since. Labs were monitored daily. She did have some post-op anemia with a hemoglobin coming down to 9.6 from pre-op labs of 12.0. No signs of active bleeding and her labs on post-op day 2 and 3 her hemoglobin remained stable at 9.1 and 9.2. She also dealt with some nausea after surgery that was treated with Zofran and slowly improved. She was taking in smaller more frequent meals, which also helped. Bowel function returned on post-op day 1. She is tolerating activity and her post-op incisional pain is well controlled with Tylenol and oxycodone. She is stable for discharge today. Plan to follow-up with Dr. Hernandez in the office in 2 weeks as scheduled. Final pathology still pending on discharge. Status at Discharge Functional status at discharge: independent ambulation Overall status at discharge: patient is progressing back to baseline Time Spent with Patient Time attestation: Total time spent providing and/or coordinating discharge services: Exam Const: General: comfortable and no acute distress Nutritional Appearance: average body habitus Orientation/consciousness: patient oriented x3 GI: Inspection: non-distended and incision (incisions dry and intact) GI Palp: Yes Soft to palpation and Yes Tenderness to palpation present (GI) (incisional) Auscultation: normal bowel sounds Neuro: General: moves all extremities and no focal motor deficits Extrem: General: no calf tenderness and no edema Psych: Mental Status: mental status grossly normal Insight: Good insight present (Psych) DS: Data Data Completed and Pending Pending studies at discharge: Pending at discharge 02/25/23 09:11 Surgical [PTH] Routine Labs on day of discharge: Labs from last 24 hours 02/28/23 02/28/23 05:23 05:23 WBC 5.1 RBC 2.98 L Hgb 9.2 L Hct 29.7 L MCV 99.7 MCH 30.9 D MCHC 31.0 L RDW 12.8 Plt Count 226 MPV 8.6 Sodium 138 Potassium 3.9 Chloride 103 Carbon Dioxide 34 H Anion Gap 1 L BUN 5 L Creatinine 0.50 L Estim Creat Clear Calc 101 Estimated GFR > 60 Glucose
[2023-02-28 10:00] VITALS: PULSE 70; RESP 18; O2SAT 99
[2023-02-28 10:10] VITALS: BP 108/71; PULSE 70; RESP 18; TEMP 37.4; O2SAT 99
--- NOTE | 2023-02-28 12:52 | PC.NURSE ---
On 02/28/23, the student, [Vishal Brewer], provided care and completed [facility] documentation on this patient. I have reviewed the student's documentation and agree with the findings.
== END 2023-02-28 11:50 | disposition home or self-care (01) | DRG 331 ==
LOC: ANH2MED 12:04
PROVIDERS: Admitting Provider Surgery; PCP Internal Medicine; Visit Provider Nurse Practitioner Family
PROC: 0DTF4ZZ Resection of Right Large Intestine, Percutaneous Endoscopic Approach (ICD-10-PCS; principal; 2023-02-25 07:30)
DX: C18.1 Malignant neoplasm of appendix (principal); F41.9 Anxiety disorder, unspecified; N99.89 Other postprocedural complications and disorders of genitourinary system; R33.8 Other retention of urine; D64.89 Other specified anemias; Z90.49 Acquired absence of other specified parts of digestive tract
CPT/HCPCS: 36415; 80048; 85025; 85027; 88305; 88309; 88331; 88342; A9270; C9290; J0690; J1100; J1170; J1650; J1885; J2250; J2270; J2370; J2405; J2704; J2710; J3010; J7030; J7120

== ENCOUNTER → 2023-11-08 08:43 | Outpatient (CLI) | payer BC, SELFPAY ==
--- NOTE | ~2023-11-08 | DEXA_ITS ---
Bone Density Report Name: ALIDA AGRVIN Age: 58 Sex: Female Ethnicity: White Date of : 1965 Indication: osteopenia; parental hip fracture; cancer; postmenopausal Referring Provider: CHRISTIANE KABA Study: Bone densitometry was performed. Exam Date: November 08, 2023 Accession number: [id number] Bone Density: Region BMD T-score Z-score Classification AP Spine (L1-L4) 0.871 -1.6 -0.3 Osteopenia Femoral Neck (Left) 0.625 -2.0 -0.8 Osteopenia Total Hip (Left) 0.723 -1.8 -1.0 Osteopenia Femoral Neck (Right) 0.600 -2.2 -1.1 Osteopenia Total Hip (Right) 0.762 -1.5 -0.6 Osteopenia Total Hip Mean 0.743 -1.7 -0.8 Osteopenia World Health Organization criteria for BMD impression classify patients as: Normal (T-score at or above -1.0), Osteopenia (T-score between -1.0 and -2.5), or Osteoporosis (T-score at or below -2.5). 10-year Fracture Risk(1): Major Osteoporotic Fracture 18% Hip Fracture 1.5% Reported Risk Factors: [place] (), Neck BMD=0.600, BMI=25.6, parental fracture (1) FRAX(R) Version 3.08. Fracture probability calculated for an untreated patient. Fracture probability may be lower if the patient has received treatment. Previous Exams: Region Exam Age BMD T-score BMD Change BMD Change Date g/cm2 vs Baseline vs Previous AP Spine(L1-L4) 11/08/2023 58 0.871 -1.6 -0.023* -0.023* 09/04/2021 55 0.894 -1.4 Total Hip(Left) 11/08/2023 58 0.723 -1.8 -0.026 -0.026 09/04/2021 55 0.749 -1.6 Total Hip(Right) 11/08/2023 58 0.762 -1.5 -0.014 -0.014 09/04/2021 55 0.776 -1.4 *Denotes significance at 95% confidence level, LSC for AP Spine = 0.022 g/cm2, LSC for Total Hip = 0.027 g/cm2 Clinical Information Provided by Patient: Parent has had a hip fracture Has used the following medications: Calcium, MTV Has the following medical conditions: Cancer, RA as a child, appendix cancer 2022 Patient maximum height was 67.5 Menopause Age: 52 No regular weight bearing exercise Drinks caffeinated beverages Onset of menses at age 13 Number of children 4 Impression: The patient has low bone mass, based on the Right Femoral Neck T-score. The patient has an estimated ten-year risk of hip fracture of 1.5% and an estimated ten-year risk of major fracture of 18%, based on the WHO FRAX algorithm. The patient has risk factors, including: parental hip fracture. The BMD for the AP Spine(L1-L4
== END ==
PROVIDERS: PCP Obstetrics & Gynecology; Visit Provider Obstetrics & Gynecology
DX: M85.89 Other specified disorders of bone density and structure, multiple sites (principal)
CPT/HCPCS: 77080

== ENCOUNTER 2023-12-10 00:55 | Day surgery (SDC) | payer BC, SELFPAY ==
[2023-12-02 16:41] VITALS: BMI 24.1
--- NOTE | 2023-12-02 16:50 | PC.NURSE ---
Report to the Outpatient Waiting Room, entrance under the green pavilion located off [facility], at time 08:00am on date 12-10-23. Planned Procedure Time: 10:00am. Time changes happen often and if your time is changed the preop area will call you the afternoon before. - You and your visitor will be asked to self-screen and do not enter if you have any COVID symptoms. - A mask is optional within the hospital at this time. - No food or drink from midnight until time of surgery Take the following medications with a SIP of water the morning of surgery: paroxetine DO NOT STOP ANY OF YOUR OTHER PRESCRIPTION MEDICATIONS PRIOR TO SURGERY EXCEPT THE FOLLOWING Medications to discontinue per physician: vitamins Date to take last dose 12-06-23 Please no make-up, nail hungarian, hairspray, perfume, deodorant, or body powder the day of surgery. No jewelry (including any body piercings) or valuables the day of surgery, leave them at home. Please take a shower or bath the night before, or the morning of, surgery with an antibacterial soap. Wear comfortable, loose fitting clothing. - Jewelry must be removed prior to entering the operating room. Rings and piercings that are not removed may be cut off. - The hospital will not accept responsibility for valuables. - Please leave all valuables, including medications, at home the day of surgery. If you are going home after surgery, a licensed pile driver must drive you home. - NO public transportation without another adult if you receive anesthesia. - We recommend that an adult stay with you for 24 hours following discharge. - We also recommend that you do not drive, make important decision, drink alcoholic beverages, or take any drugs that were not prescribed by your health care provider for at least 24 hours after your discharge time. Follow any additional instructions given to you from your surgeon. If you or anyone in your household have experienced Covid symptoms in the past week, please notify your surgeon or the nurse liaison at the phone number below for possible testing. Telephone instructions given to PATIENT and asked if any additional questions and then verbalized understanding. Patient advised to call surgeon office or pre surgery nurse liaison [phone] if any additional questions.
--- NOTE | 2023-12-09 16:09 | WPDANESEPPF ---
Anes - Initial Pre Proc Eval Procedure: Operation Date: 12/10/23 10:00 Proposed Procedures p Right Endoscopic Carpal Tunnel Release, Possible Open - Dea Mckenzie MD Date/Time: 12/09/23 16:09 Surgeon: Dea Mckenzie MD Pre Op Diagnosis: right wrist carpal tunnel syndrome Patient Data Age: 58 Gender: F Height: 1.7 m Weight: 70 kg Allergies Allergy/AdvReac Type Severity Reaction Status Date / Time No Known Allergies Allergy Verified 12/02/23 16:42 Home Medications Medication Instructions Recorded Confirmed Type paroxetine HCl 10 mg tablet 10 mg PO QAM 09/20/22 12/02/23 History fexofenadine 180 mg tablet 180 mg PO DAILY 02/22/23 12/02/23 History (Allergy Relief (fexofenadine)) acetaminophen 650 mg 650 mg PO PRN PRN Pain 12/02/23 12/02/23 History tablet,extended release multivit with minerals-iron 18 1 tablet PO DAILY 12/02/23 12/02/23 History mg-folic ac 400 mcg-vit K 25 mcg tablet (Adults Multivitamin) Patient hx anesthesia problems: post op nausea/vomiting Family hx anesthesia problems: none Results Review: All pre-operative results and documents have been reviewed as part of the pre-operative evaluation. [facility] Past Medical History Medical History (Updated 12/09/23 @ 16:10 by Lui Joshua DO) Adenocarcinoma of appendix metastasized Anxiety Cecal cancer History of vaginal delivery x 3 Peritoneal carcinomatosis PONV (postoperative nausea and vomiting) Surgical History Surgical History History of delivery ax 1 History of cholecystectomy History of colon surgery 02/25/23 Laparoscopic right hemicolectomy with ileocolic anastomosis, da Brooklynn assisted History of kidney surgery History of tonsillectomy and adenoidectomy Hx of laparoscopy (~07/26/23) [place] teeth removed Family History Family History Father Carcinoma of colon Skin cancer Mother Cerebrovascular accident Other Family history of arthritis Social History Social History Smoking status: Never smoker Second hand tobacco smoke exposure: No Alcohol intake: current Drinks per week: 2 Substance use: never Substance use type: does not use Lack of Transportation: No Lack of Food: Never True Current Housing: I Have Housing Concerned About Future Housing: No Difficulty Paying Gas/Electric Bills: No Difficulty Paying for Meds: No Currently Unemployed: No Education: Master's Degree or Higher Difficulty w/ Childcare or Family Care: No Living arrangements: with family Additional living arrangements comments: SPOUSE AND CHILD Occupation/Education: occupation Additional occupation/education comments: Speech Pathologist Gender identity (if verbalized by the patient): Female Sexual Orientation (if Verbalized by the Patient): Straight or Heterosexual Spiritual care concerns: No Anes - Eval Final PreProcedure Day of Procedure 12/09/23 16:09 Patient weight: normal Heart: regular rate and rhythm Lungs: clear to auscultation and normal air movement Airway: Mallampati scale class II Neurological: alert and oriented Last oral intake: >/= 8 hours ASA classification: III Emergent: no Anesthetic plan: proceed Anesthesia type and monitoring: general GIVS and standard monitoring Results Review: All pre-operative results and documents have been reviewed as part of the pre-operative evaluation. Informed Consent: The patient's anesthetic plan and its attendant risks and benefits were discussed with the patient/family/POA. Questions were solicited and answers provided to the satisfaction of the patient/family/POA.
--- NOTE | 2023-12-10 07:04 | WPDHPUPDATE1 ---
History and Physical Update Update Date/Time: 12/10/23 07:04 Patient seen and examined in pre-operative holding area. No interval change in medical history or symptoms. Patient recalls previous discussion of benefits and alternatives to procedure. Continues to desire to proceed with right ectr possible open. Reviewed procedure, post-op expectations and risks including but not limited to bleeding, infection, injury to tendon/nerve/vessel, decreased hand function, stiffness, RSD, no change or worsening of symptoms. I discussed the possible use of assistants and their participation in the case. Patient stated understanding and signed the consent form wishing to proceed.
--- NOTE | 2023-12-10 07:05 | W.PM.PROC2 ---
Procedure Note - Detailed Date of Procedure 12/10/23 Pre-op Diagnosis right carpal tunnel syndrome Post-op Diagnosis Same Procedure Performed right ectr Surgeon Dea Mckenzie MD Wellness Specialist kendall martinez pa-c Anesthesia MAC Description of Procedure INFORMED CONSENT: The patient was seen and examined and marked in the pre-op area.? The patient signed the consent form. PROCEDURE IN DETAIL:The patient taken back to OR on the stretcher in supine position. Time out performed with anesthesia, surgeon and staff agreeing on patient's name site and surgery to be performed SCDs were placed on the lower extremities and inflated. A tourniquet was placed on {right} upper extremity and antibiotics given IV After anesthesia administered sedation I injected {4}cc 1%lido with epi and 0.5% marcaine plain at the operative site The?{right upper extremity}?was prepped and draped in sterile fashion the??{right upper extremity} was? exsanguinated with Esmarch bandage and tourniquet inflated to 250mmHg I made a transverse incision in the {right} volar distal wrist crease through skin and dermis with 15 blade scalpel.? Littler scissors spread down to antebrachial fascia. A small incision was made in antebrachial fascia allowing access to Carpal tunnel. I proceeded with sequential dilation staying in line with the ring finger and hugging the hook of the hamate.? I then used the synovial elevator to free any adhesions from the underside of the transverse carpal ligament. Next I was able to insert the Microaire endoscopic carpal tunnel device with direct visualization of the transverse fibers on the monitor and proceeded with complete segmental retrograde release of the ligament in its entirety.? I irrigated with normal saline and closed with 4-0 monocryl for dermis and subcuticular closure. A dressing of Dermabond, 4x4, melvin, and a volar splint was applied for patient safety, security, and comfort and secured with an joaquin bandage after the tourniquet was let down noting the hand was warm and well perfused. The patient was then awaken from anesthesia and transferred to the recovery room in stable condition.? Complications - none EBL- 0cc Disposition - home in stable conditions Kendall Martinez PA-C was essential for positioning, retraction, closure and dressing placement [facility] Billing Surgery - Charge Forward: Surgery Billing ([id number])
[2023-12-10 09:00] VITALS: BP 121/90; PULSE 79; RESP 14; TEMP 36.6; O2SAT 100
[2023-12-10] MEDS: LACTATED RINGERS 1,000 ML 30 ML IV CONT (09:00)
[2023-12-10] MEDS: ceFAZolin 2 GM/D5W 50 ML 2 GM/50 ML BAG IVPB (09:17)
[2023-12-10] MEDS: SCOPOLAMINE 1 MG PATCH 1 PATCH TRANSDERM (09:20)
[2023-12-10] MEDS: BUPivacaine HCL 0.5% PF 30 ML VIAL 5 ML INFILTRATE (09:36)
[2023-12-10] MEDS: LIDOCAINE HCL 1% LOCAL INJ 20 ML VIAL 5 ML INFILTRATE (09:36)
[2023-12-10 09:38] VITALS: BP 109/76; PULSE 65; RESP 14; O2SAT 100
[2023-12-10 10:00] VITALS: BP 107/67; PULSE 59; RESP 14; O2SAT 100
[2023-12-10 10:20] VITALS: BP 112/72; PULSE 58; RESP 14
== END 2023-12-10 10:33 | disposition home or self-care (01) ==
PROVIDERS: PCP Internal Medicine; Visit Provider Plastic Surgery
PROC: 01N54ZZ Release Median Nerve, Percutaneous Endoscopic Approach (ICD-10-PCS; CPT 29848; principal; 2023-12-10 10:00)
DX: G56.01 Carpal tunnel syndrome, right upper limb (principal); Z85.89 Personal history of malignant neoplasm of other organs and systems
CPT/HCPCS: 29848; A9270; J0690; J2405; J2704; J3010; J7120